=== PATIENT | female | born 1990 | race Caucasian/White ===

== ENCOUNTER 2018-09-22 14:24 | Outpatient (CLI) | payer MEDICAID, SELFPAY ==
[2018-09-22 14:55] LABS: Abs Immature Grans 0.06 k/cumm (0.0-0.09); Absolute Basophil Count 0.01 k/cumm (0.0-0.2); Absolute Eosinophil Count 0.09 k/cumm (0.0-0.7); Absolute Lymphocyte Count 1.96 k/cumm (1.2-3.4); Absolute Neutrophil Count 8.44 k/cumm (1.2-6.7); Basophils % 0.1; Eosinophils % 0.8; HCT 37.1 % (36.0-46.0); HGB 12.8 g/dL (12.0-15.5); Immature Grans % 0.5; Lymphocytes % 17.4; Mean Corp. HGB Concentration 34.5 g/dL (32.0-36.0); Mean Corpuscular Hemoglobin 30.5 pg (27.0-33.0); Mean Corpuscular Volume 88.5 fL (80-95); Mean Platelet Volume 10.5 fL (8.0-11.0); Monocytes % 6.2; Platelet Count 229 x1000/uL (130-400); RBC 4.19 m/cumm (4.00-5.20); RBC Distribution Width 13.7 % (11.7-14.6); White Blood Cell Count 11.25 k/cumm (4.4-10.8)
[2018-09-22 16:31] LABS: TSH (W/Ref FT4) 1.31 uIU/mL (0.36-3.74)
[2018-09-22 19:09] LABS: *AMPHETAMINES SCREEN URINE Negative (Negative); *BARBITURATES SCREEN URINE Negative (Negative); *BENZODIAZEPINES SCREEN URINE Negative (Negative); Cannabinoids THC Negative (Negative); Cocaine Screen,Urine Negative (Negative); METHADONE URINE SCREEN Negative (Negative); OPIATES URINE SCREEN Negative (Negative)
[2018-09-22 19:12] LABS: Tricyclic Antidepressants Negative (Negative)
[2018-09-23 10:22] LABS: Hepatitis C Ab w Rflx HCV PCR Negative (NEGAT)
[2018-09-23 12:06] LABS: Rubella IgG Ab (UVM) Positive
[2018-09-23 13:11] LABS: HIV-1/2 Ag & Ab Screen Negative (NEGAT)
[2018-09-23 13:12] LABS: Hepatitis B Surface Ag Negative (NEGAT)
[2018-09-23 13:32] LABS: Varicella IgG Antibody Positive
[2018-09-30 12:02] LABS: Buprenorphine Negative; Norbuprenorphine Negative
== END 2018-09-22 14:44 ==
PROVIDERS: Visit Provider Advanced Practice Midwife
DX: Z34.91 Encounter for supervision of normal pregnancy, unspecified, first trimester (principal); Z11.59 Encounter for screening for other viral diseases; Z11.4 Encounter for screening for human immunodeficiency virus [HIV]; Z11.3 Encounter for screening for infections with a predominantly sexual mode of transmission
CPT/HCPCS: 36415; 80307; 86787; 86803; 86850; 86900; 86901; 87340; 87389; 84443; 85025; 86762; 87086

== ENCOUNTER 2018-10-14 01:33 | Outpatient (CLI) | payer MEDICAID, SELFPAY ==
--- NOTE | 2018-10-14 09:36 | DI.US_ITS ---
SYMPTOMS/DIAGNOSIS: DECLINED DATING, Z34.90, SUPERVISION NORMAL OB ULTRASOUND: OB ultrasound was performed utilizing second trimester protocol. biometry is consistent with gestational age of 21 weeks and an EDC of 02/24/2019. The placenta is posterior with no evidence of placenta previa. There is a normal quantity of amniotic fluid. anomaly screen is within normal limits as per the attached checklist. cardiac activity observed at a rate of 144 bpm. Predicted Gestational Age: Indication/History: 21+1 Wks Range: 20+1 to 22+1 Prior US done on: Determined by: First US LMP History EDC by prior US: 02/23/2019 For multiple gestations: Baby PLACENTA: Grade: 0 Location: Anterior Posterior X PRESENTATION: RT LT LOW LYING PREVIA Cephalic Trans (Head RT LT ) Varied X Breech BIOMETRY: Anatomy Identified: BPD: 46 mm 19+5 wks 4 chamber Heart X Heart Rate 144 BPM HC: 184 mm 20+5 wks LVOT X Post Fossa X AC: 168 mm 21+6 wks RVOT X Ventricles X FL: 36 mm 21+3 wks Stomach X Nose X Bladder X Lips X Cisterna Magna: 5.7 mm CI: 74 Kidneys X Palate X Cerebellum: 2.14 mm 3 vessel cord X Spine X EFW: grms % Cord Insertion X NS= not seen Composite Age (US) 21 wks Many abnormalities cannot be diagnosed. A normal exam does not exclude congenital abnormality. EDC by US Amniotic Fluid Index: Normal COMMENTS: 0 lbs, 15 oz. ? prominent rt renal pelvis at 3.0 mm-3.6 mm (AP) RUQ: LUQ: RLQ: LLQ: Total: cm Biophysical Profile: Score 0/2 PORTER (>2cm) Respirations (>30 sec) Body flexion/extension Extremity flexion/extension TOTAL SCORE
== END 2018-10-14 01:53 ==
PROVIDERS: Visit Provider Advanced Practice Midwife
DX: Z34.92 Encounter for supervision of normal pregnancy, unspecified, second trimester (principal)
CPT/HCPCS: 76805

== ENCOUNTER 2018-12-09 09:00 | Outpatient (CLI) | payer MEDICAID, SELFPAY ==
[2018-12-09 09:45] LABS: HCT 35.1 % (36.0-46.0); HGB 11.8 g/dL (12.0-15.5); Mean Corp. HGB Concentration 33.6 g/dL (32.0-36.0); Mean Corpuscular Hemoglobin 31.1 pg (27.0-33.0); Mean Corpuscular Volume 92.6 fL (80-95); Mean Platelet Volume 9.6 fL (8.0-11.0); Platelet Count 206 x1000/uL (130-400); RBC 3.79 m/cumm (4.00-5.20); RBC Distribution Width 13.7 % (11.7-14.6); White Blood Cell Count 9.08 k/cumm (4.4-10.8)
[2018-12-09 09:46] LABS: Glucose,1 Hr (Glucola) 78 mg/dL (80-140)
[2018-12-10 16:26] LABS: Syphilis Total Ab w/Reflex Nonreactive (Nonreactive)
== END 2018-12-09 09:20 ==
PROVIDERS: Visit Provider Advanced Practice Midwife
DX: Z34.93 Encounter for supervision of normal pregnancy, unspecified, third trimester (principal)
CPT/HCPCS: 36415; 82950; 85027; 86780

== ENCOUNTER 2019-01-27 09:37 | Outpatient (CLI) | payer MEDICAID, SELFPAY | END 2019-01-27 09:57 | PROVIDERS: Visit Provider Advanced Practice Midwife | DX: Z01.818 Encounter for other preprocedural examination (principal) ==

== ENCOUNTER 2019-01-27 12:43 | Outpatient (REF) | payer MEDICAID, SELFPAY ==
[2019-01-27 13:37] LABS: *AMPHETAMINES SCREEN URINE Negative (Negative); *BARBITURATES SCREEN URINE Negative (Negative); *BENZODIAZEPINES SCREEN URINE Negative (Negative); Cannabinoids THC Negative (Negative); Cocaine Screen,Urine Negative (Negative); METHADONE URINE SCREEN Negative (Negative); OPIATES URINE SCREEN Negative (Negative)
[2019-01-27 13:40] LABS: Tricyclic Antidepressants Negative (Negative)
[2019-01-30 10:08] LABS: Buprenorphine Negative; Norbuprenorphine Negative
== END 2019-01-27 13:03 ==
LOC: LBN 12:43
PROVIDERS: Visit Provider Advanced Practice Midwife
DX: Z34.93 Encounter for supervision of normal pregnancy, unspecified, third trimester (principal); Z36.85 Encounter for antenatal screening for Streptococcus B
CPT/HCPCS: 80307; 87081

== ENCOUNTER 2019-02-13 01:16 | Outpatient (CLI) | payer MEDICAID, SELFPAY ==
--- NOTE | 2019-02-13 13:39 | DI.US_ITS ---
EXAM: US OB PORTER WEIGHT CLINICAL HISTORY: S<D on fundal height measurement, O26.843 TECHNIQUE: Ultrasound performed using standard protocol. COMPARISON: US OB 2-3 trimester from 10/14/2018 FINDINGS: The fetus is in cephalic position. The placenta is posterior and grade 2-3. Biometric measurements correspond to 38 weeks 0 days. Estimated weight is 3398 grams, which is near the 50th percenti le. The amniotic fluid index is 6.4, which is at the lower limits of normal. IMPRESSION: size and weight are within the expected range. The amniotic fluid index is at the lower limits of normal.
== END 2019-02-13 01:36 ==
PROVIDERS: Visit Provider Advanced Practice Midwife
DX: O26.843 Uterine size-date discrepancy, third trimester (principal)
CPT/HCPCS: 76816

== ENCOUNTER 2019-02-17 10:39 | Outpatient (CLI) | payer MEDICAID, SELFPAY | END 2019-02-17 10:59 | PROVIDERS: Visit Provider Advanced Practice Midwife | DX: Z34.83 Encounter for supervision of other normal pregnancy, third trimester (principal); Z3A.39 39 weeks gestation of pregnancy | CPT/HCPCS: 59025 ==

== ENCOUNTER 2019-02-24 06:59 | Outpatient (CLI) | payer MEDICAID, SELFPAY ==
--- NOTE | 2019-02-24 09:45 | DI.US_ITS ---
EXAM: US OB PORTER UMBILICAL ARTERY CLINICAL HISTORY: Borderline low PORTER, Z34.90-SUPERVISION OF NORMAL TECHNIQUE: Ultrasound performed using standard protocol. COMPARISON: No exams were available for comparison FINDINGS: The fetus is in cephalic position. cardiac activity is demonstrated at 144 beats per minute. The amniotic fluid index is 9.1 cm, in the normal range. Umbilical artery Doppler assessment was per formed. The SD ratio is 3.1 which is near the 95th percentile. The pulsatility index is 1.6 which i s above the normal range. The resistive index is 0.68, at the 95th percentile. IMPRESSION: PORTER is within normal limits. Umbilical artery pulsatility index is above normal range at 1.6.
== END 2019-02-24 07:19 ==
PROVIDERS: Visit Provider Advanced Practice Midwife
DX: Z34.93 Encounter for supervision of normal pregnancy, unspecified, third trimester (principal); Z36.89 Encounter for other specified antenatal screening
CPT/HCPCS: 76816; 76820

== ENCOUNTER 2019-02-24 07:49 | Outpatient (CLI) | payer MEDICAID, SELFPAY | END 2019-02-24 08:09 | PROVIDERS: Visit Provider Advanced Practice Midwife | DX: O41.03X0 Oligohydramnios, third trimester, not applicable or unspecified (principal); Z3A.40 40 weeks gestation of pregnancy | CPT/HCPCS: 59025 ==

== ENCOUNTER 2019-02-28 00:30 | Outpatient (CLI) | payer MEDICAID, SELFPAY ==
--- NOTE | 2019-02-28 09:08 | DI.US_ITS ---
EXAM: US OB PORTER UMBILICAL ARTERY CLINICAL HISTORY: Oligohydramnios antepartum, O41.00X0 TECHNIQUE: Ultrasound performed using standard protocol. COMPARISON: US OB PORTER UMBILICAL ARTERY from 02/24/2019 FINDINGS: Limited 3rd trimester ultrasound was performed. The amniotic fluid index is 10 and visually there is a normal quantity of amniotic fluid. cardiac activity observed at a rate of 147 BPM. Fetus i s in cephalic presentation. Placenta is fundal and right-sided with no placenta previa. Umbilical artery Doppler evaluation was performed. SD ratio was 1.8-2.0. Resistive index was 0.4-0.5. Pulsatility index was 0.6-0.7. IMPRESSION: Unremarkable umbilical artery Doppler evaluation in a near term gestation.
== END 2019-02-28 00:50 ==
PROVIDERS: Visit Provider Advanced Practice Midwife
DX: O41.00X0 Oligohydramnios, unspecified trimester, not applicable or unspecified (principal); O35.8XX0 Maternal care for other (suspected) fetal abnormality and damage, not applicable or unspecified; Z3A.40 40 weeks gestation of pregnancy; O48.0 Post-term pregnancy
CPT/HCPCS: 76816; 76820; 59025

== ENCOUNTER 2019-02-28 09:28 | Outpatient (CLI) | payer MEDICAID, SELFPAY | END 2019-02-28 09:48 | PROVIDERS: Visit Provider Advanced Practice Midwife | DX: O35.8XX0 Maternal care for other (suspected) fetal abnormality and damage, not applicable or unspecified (principal); O48.0 Post-term pregnancy; Z3A.40 40 weeks gestation of pregnancy | CPT/HCPCS: 59025 ==

== ENCOUNTER 2019-04-17 16:09 | Outpatient (REF) | payer MEDICAID, SELFPAY ==
--- NOTE | 2019-04-17 15:30 | PAPFT_PTH ---
PATIENT: Lina De Anda LOC: [facility] U#:[id number] AGE/SX: 28/F ROOM: RE04/17/[address]: Gina Mckeon CNM : 1990 BED: DIS: 04/17/2019 SPEC #: [id number] RECD: 04/17/19 18:21 STATUS: KIEL REQ #: [id number] SHASHANK: 04/17/19 15:[address]: Gina Mckeon DEPT: [facility] Cytology RECD BY: Sarah Rodriguez ENTERED: 04/17/19 18:21 SP TYPE: PAPFT OTHR DR: None Tissues: 1 - CX/ENDOCX FOR PAP SMEARS Procedures: PAP THIN PREP/[facility] Screening Comments: [id number]
== END 2019-04-17 16:29 ==
LOC: LBN 16:09
PROVIDERS: Visit Provider Advanced Practice Midwife
DX: Z12.4 Encounter for screening for malignant neoplasm of cervix (principal); Z11.51 Encounter for screening for human papillomavirus (HPV)
CPT/HCPCS: 88142

== ENCOUNTER 2021-02-21 01:55 | Outpatient (CLI) | payer MEDICAID, SELFPAY ==
--- NOTE | 2021-02-21 06:30 | DI.US_ITS ---
Exam(s) US OB 2-3 TRIMESTER EXAM: US OB 2-3 TRIMESTER CLINICAL HISTORY: anatomy US, no previous US obtained, late entry.z34.92. TECHNIQUE: Transabdominal obstetrical ultrasound was performed. COMPARISON: None. This is the 1st ultrasound examination for this in our department FINDINGS: There is a single viable intrauterine gestation with cardiac activity identified-152 bpm. Amniotic fluid: There is a normal amount of amniotic fluid. Placental location: The placenta is anterior grade 0,with no evidence of placenta previa.The distance from the placenta tip to the internal cervical os is 7.6 cm ANATOMY: A 3 vessel umbilical cord is seen. A four-chamber cardiac view was obtained. Right and left ventricular outflow tracts were imaged. There are no obvious abnormalities of the spinal column evident. There is no obvious abnormal ity of the anterior abdominal wall. stomach and urinary bladder are identified and there is no evidence of hydronephrosis. No abnormalities of the upper lip region are identified. No evidence of choroid plexus cysts i n the brain. Dating parameters place this at approximately 20 weeks and 5 days gestational age. BPD measures 20 weeks and 4 days HC measures 20 weeks and 5 days AC measures 20 weeks and 6 days FL measures 20 weeks and 5 days Estimated weight is 377 gm-0 pounds 13 ounces Fetus is at the 33rd percentile on the Hadlock scale. IMPRESSION:: Single viable intrauterine gestation which is approximately 20 weeks and 5 days gestati onal age, implying an ROBERT of July 06, 2021. There are no obvious anomalies evident on today's study. The placenta is anterior with no evidence of placenta previa. There is a normal amount of amniotic fluid. DATA REPOSITORY:
== END 2021-02-21 02:15 ==
PROVIDERS: Visit Provider Advanced Practice Midwife
DX: Z34.92 Encounter for supervision of normal pregnancy, unspecified, second trimester (principal)
CPT/HCPCS: 76805

== ENCOUNTER 2021-02-28 01:53 | Outpatient (CLI) | payer MEDICAID, SELFPAY ==
[2021-02-28 10:51] LABS: Absolute Basophil Count 0.04 10^3/uL (0.0-0.2); Absolute Eosinophil Count 0.12 10^3/uL (0.0-0.7); Absolute Monocyte Count 0.78 10^3/uL (0.1-0.8); Absolute Neutrophil Count 9.19 10^3/uL (1.2-6.7); Basophils % 0.3; HGB 11.9 g/dL (11.2-15.7); Immature Grans % 0.8; Lymphocytes % 15.7; MCH 30.7 pg (27.0-33.0); MCHC 33.1 % (32.0-36.0); MPV 9.6 fL (8.0-11.0); Monocytes % 6.4; Neutrophils % 75.8; Nucleated RBC 0 %; Platelet Count 200 10^3/uL (130-400); RBC 3.87 10^6/uL (3.93-5.22); RDW 13.9 % (11.7-14.6); RDW-SD 47.2 fL; WBC 12.13 10^3/uL (4.4-10.8)
[2021-03-01 13:27] LABS: Syphilis Total Ab w/Reflex Nonreactive (Nonreactive)
[2021-03-03 09:35] LABS: Hepatitis B Surface Ag Negative (Negative)
[2021-03-03 10:16] LABS: Hepatitis C Ab w Rflx HCV PCR Negative (Negative)
[2021-03-03 10:27] LABS: HIV-1/2 Ag & Ab Screen Negative (Negative)
[2021-03-03 11:05] LABS: Varicella IgG Antibody Positive (See Note)
[2021-03-03 11:13] LABS: Rubella IgG Ab (UVM) Positive (See Note)
== END 2021-02-28 01:54 | disposition home or self-care (01) ==
LOC: LBO 01:53
PROVIDERS: Advanced Practice Midwife; Visit Provider Advanced Practice Midwife
DX: Z34.91 Encounter for supervision of normal pregnancy, unspecified, first trimester (principal)
CPT/HCPCS: 36415; 86787; 86803; 86850; 86900; 86901; 87340; 87389; 85025; 86762; 86780

== ENCOUNTER 2021-02-28 15:10 | Outpatient (REF) | payer MEDICAID, SELFPAY ==
[2021-02-28 16:10] LABS: *AMPHETAMINES SCREEN URINE Negative (Negative); *BARBITURATES SCREEN URINE Negative (Negative); *BENZODIAZEPINES SCREEN URINE Negative (Negative); Cannabinoids THC Negative (Negative); Cocaine Screen,Urine Negative (Negative); METHADONE URINE SCREEN Negative (Negative); OPIATES URINE SCREEN Negative (Negative); Tricyclic Antidepressants Negative (Negative)
[2021-03-04 15:09] LABS: Chlamydia Result Negative (Negative); GC Result Negative (Negative)
[2021-03-05 10:13] LABS: Buprenorphine Negative ng/mL (Cutoff: 5.0); Norbuprenorphine Negative ng/mL (Cutoff: 2.5)
== END 2021-02-28 15:11 | disposition home or self-care (01) ==
LOC: LBN 15:10
PROVIDERS: Visit Provider Advanced Practice Midwife
DX: Z34.91 Encounter for supervision of normal pregnancy, unspecified, first trimester (principal); Z11.3 Encounter for screening for infections with a predominantly sexual mode of transmission
CPT/HCPCS: 80307; 87491; 87591; 87086

== ENCOUNTER 2021-03-28 03:34 | Outpatient (CLI) | payer MEDICAID, SELFPAY ==
[2021-03-28 11:34] LABS: HCT 34.4 % (36.0-46.0); HGB 11.6 g/dL (11.2-15.7); MCH 31.3 pg (27.0-33.0); MCHC 33.7 % (32.0-36.0); MCV 92.7 fL (80-95); MPV 9.8 fL (8.0-11.0); Platelet Count 188 10^3/uL (130-400); RBC 3.71 10^6/uL (3.93-5.22); RDW 13.3 % (11.7-14.6); RDW-SD 45.7 fL; WBC 12.09 10^3/uL (4.4-10.8)
[2021-03-28 11:43] LABS: Glucose,1 Hr (Glucola) 83 mg/dL (80-140)
== END 2021-03-28 03:35 | disposition home or self-care (01) ==
LOC: LBO 03:34
PROVIDERS: Advanced Practice Midwife; Visit Provider Advanced Practice Midwife
DX: Z34.92 Encounter for supervision of normal pregnancy, unspecified, second trimester (principal)
CPT/HCPCS: 36415; 82950; 85027